=== PATIENT | male | born 1955 | race Caucasian/White ===

== ENCOUNTER → 2017-01-06 | Outpatient (REF) ==
[2015-05-05 16:01] VITALS: BP 123/80
[~2017-01-06] MED LIST: AMLODIPINE BESY PO; ESCITALOPRAM10 MG PO; HCTZ 25MG25 MG PO
== END ==
LOC: LAB 16:14
DX: Z00.00 Encounter for general adult medical examination without abnormal findings (principal); Z12.5 Encounter for screening for malignant neoplasm of prostate; Z12.11 Encounter for screening for malignant neoplasm of colon

== ENCOUNTER → 2017-01-06 | Outpatient (CLI) | payer BC ==
[~2017-01-06] VITALS: Ht 165.1 cm; Wt 105.9 kg
[2017-01-06 16:12] VITALS: BP 147/88
== END ==
LOC: AMSURD 16:12
DX: Z00.00 Encounter for general adult medical examination without abnormal findings (principal)

== ENCOUNTER → 2017-04-05 | Outpatient (CLI) | payer BC ==
[~2017-04-05] VITALS: Ht 165.1 cm; Wt 104.5 kg
[~2017-04-05] MED LIST changes: +AMBIEN10 MG PO; +ASPIRIN ADULT L81 M3 PO; +HYZAAR 100-251 EACH PO; +NORVASC 10MG10 MG PO
[2017-04-05 09:27] VITALS: BP 122/76
[2017-04-05 10:55] VITALS: BP 117/70
== END ==
LOC: AMSURD 08:57
DX: R50.9 Fever, unspecified (principal); R19.7 Diarrhea, unspecified
CPT/HCPCS: J7030

== ENCOUNTER → 2018-08-20 | Outpatient (CLI) | payer BC ==
[2017-04-05 10:55] VITALS: BP 117/70
== END ==
LOC: RAD 16:12
DX: I82.409 Acute embolism and thrombosis of unspecified deep veins of unspecified lower extremity (principal)

== ENCOUNTER → 2020-06-02 | Outpatient (REF) ==
[2017-04-05 10:55] VITALS: BP 117/70
== END ==
LOC: LAB 09:50
DX: Z12.11 Encounter for screening for malignant neoplasm of colon (principal); Z12.5 Encounter for screening for malignant neoplasm of prostate; I10 Essential (primary) hypertension; K90.9 Intestinal malabsorption, unspecified; R73.03 Prediabetes; E78.2 Mixed hyperlipidemia

== ENCOUNTER → 2020-11-16 | Outpatient (CLI) | payer BC | LOC: AMSURD 10:01 → RAD 10:01 | DX: R07.89 Other chest pain (principal) ==

== ENCOUNTER → 2020-11-20 | Outpatient (CLI) | payer BC | LOC: CARDREHAB 09:45 | DX: Z01.810 Encounter for preprocedural cardiovascular examination (principal); R07.89 Other chest pain | CPT/HCPCS: A9500 ==

== ENCOUNTER → 2021-02-04 | Outpatient (CLI) | payer BC | LOC: LAB 17:22 | DX: Z20.822 Contact with and (suspected) exposure to COVID-19 (principal) ==

== ENCOUNTER → 2021-07-23 | Outpatient (CLI) | payer BC | LOC: LAB 13:53 | DX: R05.1 Acute cough (principal); R06.2 Wheezing; Z20.822 Contact with and (suspected) exposure to COVID-19 ==

== ENCOUNTER 2021-09-08 10:11 | Emergency (ER) | payer BC ==
[2021-09-08 10:17] VITALS: BP 119/81
[2021-09-08 11:36] LABS: URINE APPEARANCE HAZY; URINE BILIRUBIN NEGATIVE (NEGATIVE); URINE BLOOD NEGATIVE (NEGATIVE); URINE COLOR DK YELLOW; URINE GLUCOSE NEGATIVE (NEGATIVE); URINE KETONE NEGATIVE (NEGATIVE); URINE LEUKOCYTE ESTERASE NEGATIVE (NEGATIVE); URINE NITRATE NEGATIVE (NEGATIVE); URINE PROTEIN(semi-quant) NEGATIVE (NEGATIVE); URINE UROBILINOGEN NORMAL (NORMAL)
[2021-09-08 11:37] LABS: URINE MUCUS PRESENT (NOT PRESENT)
[2021-09-08] MEDS ORDERED: VITAMIN D21250 MCG PO (11:47)
[2021-09-08] MEDS ORDERED: BENZONATATE100 M2 PO (11:47)
[2021-09-08] MEDS ORDERED: ZOLPIDEM TART10 MG PO (11:48)
[2021-09-08] MEDS ORDERED: ROSUVASTATIN CA20 MG PO (11:48)
[2021-09-08 12:47] LABS: BASO # 0.06 K/mm3 (0.02-0.10); EOS # 0.25 K/mm3 (0.04-0.40); HEMATOCRIT 44.9 % (42.0-52.0); HEMOGLOBIN 14.9 g/dL (13.5-18.0); LYMPH# 1.62 K/mm3 (1.50-4.00); MEAN CELL VOLUME 91 fl (78-100); MEAN CORPUSCULAR HEMOGLOBIN 30 pg (27-31); MEAN CORPUSCULAR HGB CONC 33 g/dL (33-37); MEAN PLATELET VOLUME 9.6 fl (7.4-10.4); MONO # 0.95 K/mm3 (0.20-0.80); NEU # 5.52 K/mm3 (1.40-6.50); PLATELET COUNT 274 K/mm3 (130-400); RED BLOOD COUNT 4.94 M/mm3 (4.20-5.60); RED CELL DISTRIBUTION WIDTH 13.7 % (11.5-14.5); WHITE BLOOD COUNT 8.4 K/mm3 (4.8-10.8)
[2021-09-08 12:51] LABS: ALBUMIN 3.9 g/dL (3.4-4.8); POTASSIUM 3.2 mmol/L (3.5-5.1); SODIUM 143 mmol/L (136-145)
[2021-09-08 12:53] LABS: CALCIUM 9.3 mg/dL (8.3-10.5)
[2021-09-08 12:54] LABS: GLUCOSE 115 mg/dL (75-110); TOTAL PROTEIN 6.8 g/dL (6.2-8.1)
[2021-09-08 12:55] LABS: CARBON DIOXIDE 29 mmol/L (23-31)
[2021-09-08 12:56] LABS: TOTAL BILIRUBIN 0.7 mg/dL (0.2-1.2)
[2021-09-08 12:59] LABS: AST-SGOT 21 U/L (5-34)
[2021-09-08 13:00] LABS: ALT/SGPT 21 U/L (0-55)
[2021-09-08] MEDS ORDERED: CIPRO500 M1 PO (14:18)
== END 2021-09-08 14:35 | disposition home or self-care (01) ==
LOC: ED 10:11
PROVIDERS: Family Medicine; Physician Assistant
DX: N39.0 Urinary tract infection, site not specified (principal); Z87.442 Personal history of urinary calculi; Z88.0 Allergy status to penicillin; Z28.310 Unvaccinated for COVID-19
CPT/HCPCS: J0696; J1885; J2405; J7030; Q9967